=== PATIENT | male | born 1955 | race Caucasian/White ===

== ENCOUNTER 2017-10-07 11:52 | Emergency (ER) | payer OTHER ==
--- NOTE | 2017-10-07 13:34 | RAD ---
INDICATION: LEFT elbow pain post fall on LEFT arm yesterday. Pain with flexion. COMPARISON: No relevant prior exams available on the [facility] for comparison. TECHNIQUE: AP, lateral, and oblique views LEFT elbow. REPORT: Displaced anterior fat pad consistent with joint effusion. No definitive fracture visualized. Normal articular alignment. Unremarkable soft tissue contours. IMPRESSION: Joint effusion without definitive conspicuous fracture. In this demographic with joint effusion in setting of trauma an occult radial head fracture would be most likely.
--- NOTE | 2017-10-07 14:22 | ED ---
Upper Extremity Pain - HPI Summary HPI Summary: Patient is a 62-year-old male who presents emergency department for a left elbow injury that occurred yesterday. Patient states he was mowing grass when he slipped and landed onto his left elbow. No other injuries were sustained. He is not anticoagulated. Denies numbness, tingling or weakness to left upper extremity. Symptoms are mild in severity. Moving left arm makes symptoms worse. Rest makes symptoms better. - History of Current Complaint Chief Complaint: EDExtremityUpper Stated Complaint: LT ARM PAIN Time Seen by Provider: 10/07/17 12:01 Hx Obtained From: Patient - Allergies/Home Medications Allergies/Adverse Reactions: Allergies Allergy/AdvReac Type Severity Reaction Status Date / Time No Known Allergies Allergy Verified 10/07/17 11:59 Home Medications: Home Medications NK [No Home Medications Reported] 10/07/17 [History Confirmed 10/07/17] PMH/Surg Hx/FS Hx/Imm Hx Previously Healthy: Yes Infectious Disease History: No Infectious Disease History: Denies: Traveled Outside the in Last 30 Days - Social History Occupation: Employed Full-time Lives: With Family Alcohol Use: None Substance Use Type: Reports: None Smoking Status (MU): Light Every Day Tobacco Smoker Review of Systems Positive: Other - pain and swelling to left elbow. Negative: Weakness, Paresthesia, Numbness All Other Systems Reviewed And Are Negative: Yes Physical Exam Triage Information Reviewed: Yes Vital Signs On Initial Exam: Initial Vitals Temp Pulse Resp BP Pulse Ox 98.7 F 88 17 144/87 96 10/07/17 11:57 10/07/17 11:57 10/07/17 11:57 10/07/17 11:57 10/07/17 11:57 Vital Signs Reviewed: Yes Appearance: Positive: Well-Appearing - Patient sitting on bed in no acute distress. Pleasant. Skin: Positive: Warm, Dry Head/Face: Positive: Normal Head/Face Inspection Eyes: Positive: Normal Neck: Positive: Supple Musculoskeletal: Positive: Other - Moderate amount of edema noted to the left lateral elbow with pain on palpation and rotation. Good palpable radial pulse. No proximal or distal pain or injuries. No breaks in the skin. Neurological: Positive: Normal, CN Intact II-III Psychiatric: Positive: Normal Procedures - Splinting Left Upper Extremity Hand-Made Type: orthoglass Splint: posterior long arm Pre-Proc Neuro Vasc Exam: normal Post-Proc Neuro Vasc Exam: normal Diagnostics - Vital Signs Vital Signs Temp Pulse Resp BP Pulse Ox 10/07/17 11:57 98.7 F 88 17 144/87 96 - Laboratory Lab Statement: Any lab studies that have been ordered have been reviewed, and results considered in the medical decision making process. Course/Dx - Course Course Of Treatment: Patient presenting to the ER for an isolated left elbow injury that occurred yesterday. Is neurovascularly intact. X-ray shows no definitive fracture but does show an anterior sail sign concerning for occult fracture, reading per myself and radiology. Arm was splinted. Will have patient follow up with orthopedics, he is to call their office today for an appointment. Advised to ice and elevate. Patient would like to take Tylenol for pain. Patient understands and agrees with plan. - Diagnoses Differential Diagnosis/HQI/PQRI: Positive: Fracture (Closed), Hematoma, Strain, Sprain Provider Diagnoses: Occult fracture of elbow Discharge - Sign-Out/Discharge Documenting (check all that apply): Discharge/Admit/Transfer - Discharge Plan Condition: Good Disposition: HOME Patient Education Materials: Elbow Fracture (ED) Forms: *Work Release Referrals: Deanne Maldonado MD [Medical Doctor] - Additional Instructions: Call Dr. Maldonado's office today to schedule an appointment Keep splint in place Tylenol for pain as directed Ice and elevate Return to ER if symptoms change or worsen - Billing Disposition and Condition Condition: GOOD Disposition: HOME
[2017-10-07 14:27] VITALS: BP 124/70
== END 2017-10-07 14:26 | disposition home or self-care (01) ==
LOC: ED 11:52
DX: S59.902A Unspecified injury of left elbow, initial encounter (principal); W01.0XXA Fall on same level from slipping, tripping and stumbling without subsequent striking against object, initial encounter; Y93.H9 Activity, other involving exterior property and land maintenance, building and construction; Y92.9 Unspecified place or not applicable; M25.422 Effusion, left elbow; F17.200 Nicotine dependence, unspecified, uncomplicated
CPT/HCPCS: 99281